=== PATIENT | female | born 1995 | race African-American/Black ===

== ENCOUNTER 2020-04-11 14:04 | Emergency (ER) | payer MEDICAID ==
[~2020-04-11] VITALS: Ht 167.6 cm; Wt 66.0 kg
[2020-04-11] MEDS ORDERED: IBUPROFEN 600MG TABLET PO ONE (15:00)
[2020-04-11 16:12] VITALS: BP 110/68
== END 2020-04-11 16:17 | disposition home or self-care (01) ==
LOC: ER 14:16
DX: S83.92XA Sprain of unspecified site of left knee, initial encounter (principal); S63.501A Unspecified sprain of right wrist, initial encounter; V43.52XA Car driver injured in collision with other type car in traffic accident, initial encounter; Y93.89 Activity, other specified; Y92.410 Unspecified street and highway as the place of occurrence of the external cause
CPT/HCPCS: 73110; 73560; 99284